=== PATIENT | male | born 1940 | race Caucasian/White ===

== ENCOUNTER 2019-05-18 13:14 | Emergency (ER) | payer MEDICARE, BC ==
[~2019-05-18] VITALS: Ht 167.6 cm; Wt 95.5 kg
[~2019-05-18 13:14] MED LIST: BICA50TA5 PO; CALC-134 PO; HYDR-3980 PO; IRBE1TAB35 PO; NALO4SPR NS; ONDA4TAB14 PO; POLY17PO6 PO; SIMV20TA PO
[2019-05-18 13:26] VITALS: Ht 167.6 cm; Wt 95.5 kg
[2019-05-18] MEDS ORDERED: ONDANSETRON 4 MG INJ IV STA (14:13)
[2019-05-18] MEDS ORDERED: morphine 4 MG/ML VIAL IV STA (14:13)
[2019-05-18 17:49] VITALS: BP 175/79; PULSE 80; RESP 21
== END 2019-05-18 17:50 | disposition home or self-care (01) ==
LOC: E/R 13:14
DX: M79.604 Pain in right leg (principal); C79.51 Secondary malignant neoplasm of bone; I10 Essential (primary) hypertension
CPT/HCPCS: 36415; 73590; 73700; 80048; 85025; 85610; 85730; 93971; 96374; 96375; 99285; J2270; J2405